=== PATIENT | female | born 1995 ===

== ENCOUNTER 2021-08-24 10:43 | Outpatient (CLI) | payer OTHER | END 2021-08-24 12:57 | disposition home or self-care (01) | LOC: PRENATAL 10:43 | PROVIDERS: ATTEND Obstetrics & Gynecology Maternal & Fetal Medicine | DX: O35.0XX1 Maternal care for (suspected) central nervous system malformation in fetus, fetus 1 (principal); O35.3XX1 Maternal care for (suspected) damage to fetus from viral disease in mother, fetus 1; O98.513 Other viral diseases complicating pregnancy, third trimester; O41.03X1 Oligohydramnios, third trimester, fetus 1; Z36.89 Encounter for other specified antenatal screening; Z3A.31 31 weeks gestation of pregnancy ==

== ENCOUNTER 2021-08-26 14:13 | Outpatient (CLI) | payer OTHER | END 2021-08-26 15:00 | disposition home or self-care (01) | LOC: NST 14:13 | PROVIDERS: ATTEND Obstetrics & Gynecology | DX: Z34.83 Encounter for supervision of other normal pregnancy, third trimester (principal) ==

== ENCOUNTER 2021-09-26 14:26 | Outpatient (CLI) | payer OTHER | END 2021-09-26 15:10 | disposition home or self-care (01) | LOC: PRENATAL 14:26 | PROVIDERS: ATTEND Obstetrics & Gynecology Maternal & Fetal Medicine | DX: O26.843 Uterine size-date discrepancy, third trimester (principal); O41.03X1 Oligohydramnios, third trimester, fetus 1; Z36.89 Encounter for other specified antenatal screening; Z3A.36 36 weeks gestation of pregnancy ==

== ENCOUNTER 2021-10-19 13:49 | Inpatient (IN) | payer OTHER ==
[~2021-10-19] VITALS: Ht 167.6 cm; Wt 89.8 kg
[2021-10-20] MEDS ORDERED: PRENATABS FA T1 EACH PO (09:24)
== END 2021-10-23 13:29 | disposition home or self-care (01) | DRG 788 ==
LOC: OBS/DEL 13:49 → LDR 10-20 08:57 → OBS/DEL 10-20 08:57 → OB/GYN 10-20 20:50
PROVIDERS: ADMIT Obstetrics & Gynecology; ATTEND Obstetrics & Gynecology
PROC: 10907ZC Drainage of Amniotic Fluid, Therapeutic from Products of Conception, Via Natural or Artificial Opening (ICD-10-PCS; 2021-10-20)
PROC: 4A1HXFZ Monitoring of Products of Conception, Cardiac Rhythm, External Approach (ICD-10-PCS; 2021-10-20)
PROC: 10D00Z1 Extraction of Products of Conception, Low, Open Approach (ICD-10-PCS; principal; 2021-10-20 16:00)
DX: O62.1 Secondary uterine inertia (principal); O65.9 Obstructed labor due to maternal pelvic abnormality, unspecified; Z3A.38 38 weeks gestation of pregnancy; Z37.0 Single live birth

== ENCOUNTER 2025-05-07 11:02 | Outpatient (CLI) | payer OTHER ==
[~2025-05-07 11:02] MED LIST: PRENATABS FA T1 EACH PO
== END 2025-05-07 11:04 | disposition home or self-care (01) ==
LOC: SONOGRAMA 11:02
PROVIDERS: ATTEND Family Medicine
DX: E04.1 Nontoxic single thyroid nodule (principal)